=== PATIENT | male | born 1930 | race Caucasian/White ===

== ENCOUNTER 2016-10-19 14:16 | Emergency (ER) | payer MEDICARE, OTHER ==
--- NOTE | 2016-10-19 14:54 | PD ---
HPI Chief Complaint: chest pain Time Seen by Provider: 14:53 Travel History International Travel<30 days: No Contact w/Intl Traveler<30days: No Traveled to known affect area: No History of Present Illness HPI 86-year-old male with history of dementia presents to the emergency department from [facility] for evaluation. Patient is only [place] speaking. We have attempted to utilize our online interpretation services, however the patient is not understanding the process and cannot figure out where the woman is speaking from. We have contacted Radha a nurse corporate strategy intern who does Central African who has calmed down to help us assess the patient. She tells us that the patient states he is fine and he would like to go home. He does not recall any chest pain or tightness. He states he has not been sick. He is hungry. He is overall a very poor historian. However per [facility], the patient had his hand on his chest and they assumed that he had chest pain and would like a cardiac evaluation. I did get a hold of the patient's who informed me she the patient has only been a [facility] rehabilitation for a couple of days. They do not have anybody he speaks [place] there. She states that this has happened in the past and the patient has had complete negative cardiac workup. He sees a hot die picker and has seen him within the last year and was told that his heart was okay. She tells me that the patient is likely hungry. She tells me the patient spoke [place] all of these years however with his dementia advancing he has reverted back to [place]. She states she, herself, is unable to communicate completely with him. [facility] Past Medical History Medical History: Unable to Obtain Social History Tobacco Use: No Allergies-Medications (Allergen,Severity, Reaction): Coded Allergies: UNOBTAINABLE (Unverified , 10/19/16) pt thai speaking; hx of dementia; unable to effectively utilize interpretation services for communication Review of Systems ROS Limitations: Poor Historian Except as stated in HPI: all other systems reviewed are Neg Physical Exam Exam Limitations: Poor Historian Narrative GENERAL: A pleasant, elderly male patient, ambulatory, in no acute distress. SKIN: Focused skin assessment warm/dry. HEAD: Atraumatic. Normocephalic. EYES: Pupils equal and round. No scleral icterus. No injection or drainage. ENT: No nasal bleeding or discharge. Mucous membranes pink and moist. NECK: Trachea midline. No JVD. CARDIOVASCULAR: Regular rate and rhythm. 2/6 systolic murmur RESPIRATORY: No accessory muscle use. Clear to auscultation. Breath sounds equal bilaterally. GASTROINTESTINAL: Abdomen soft, non-tender, nondistended. Hepatic and splenic margins not palpable. MUSCULOSKELETAL: No obvious deformities. No clubbing. No cyanosis. No edema. NEUROLOGICAL: Awake and alert. No obvious cranial nerve deficits. Motor grossly within normal limits. Patient speaks primarily [place]. Data Data Last Documented VS Vital Signs Date Time Temp Pulse Resp B/P Pulse Ox O2 Delivery O2 Flow Rate FiO2 10/19/16 19:14 71 18 128/80 100 Room Air Orders Electrocardiogram (10/19/16 14:52) Basic Metabolic Panel (Bmp) (10/19/16 14:52) Ckmb (Isoenzyme) Profile (10/19/16 14:52) Complete Blood Count With Diff (10/19/16 14:52) Magnesium (Mg) (10/19/16 14:52) Prothrombin Time / Inr (Pt) (10/19/16 14:52) Act Partial Throm Time (Ptt) (10/19/16 14:52) Troponin I (10/19/16 14:52) Chest, Single Ap (10/19/16 14:52) Ecg Monitoring (10/19/16 14:52) Bilateral Bp Monitoring (10/19/16 14:52) Iv Access Insert/Monitor (10/19/16 14:52) Oximetry (10/19/16 14:52) Oxygen Administration (10/19/16 14:52) Aspirin Chew (Aspirin Chew) (10/19/16 15:00) Sodium Chloride 0.9% Flush (Ns Flush) (10/19/16 15:00) Sodium Chlorid 0.9% 500 Ml Inj (Ns 500 M (10/19/16 15:00) CKMB (10/19/16 15:45) CKMB% (10/19/16 15:45) Labs Laboratory Tests Test 10/19/16 15:45 White Blood Count 5.9 TH/MM3 Red Blood Count 3.71 MIL/MM3 Hemoglobin 10.4 GM/DL Hematocrit 32.5 % Mean Corpuscular Volume 87.7 FL Mean Corpuscular Hemoglobin 28.0 PG Mean Corpuscular Hemoglobin 32.0 % Concent Red Cell Distribution Width 16.6 % Platelet Count 246 TH/MM3 Mean Platelet Volume 11.2 FL Neutrophils (%) (Auto) 49.9 % Lymphocytes (%) (Auto) 37.2 % Monocytes (%) (Auto) 10.3 % Eosinophils (%) (Auto) 1.6 % Basophils (%) (Auto) 1.0 % Neutrophils # (Auto) 2.9 TH/MM3 Lymphocytes # (Auto) 2.2 TH/MM3 Monocytes # (Auto) 0.6 TH/MM3 Eosinophils # (Auto) 0.1 TH/MM3 Basophils # (Auto) 0.1 TH/MM3 CBC Comment DIFF FINAL Differential Comment Prothrombin Time 11.0 SEC Prothromb Time International 1.0 RATIO Ratio Activated Partial 26.1 SEC Thromboplast Time Sodium Level 139 MEQ/L Potassium Level 3.7 MEQ/L Chloride Level 104 MEQ/L Carbon Dioxide Level 27.5 MEQ/L Anion Gap 8 MEQ/L Blood Urea Nitrogen 25 MG/DL Creatinine 0.90 MG/DL Estimat Glomerular Filtration 80 ML/MIN Rate Random Glucose 92 MG/DL Calcium Level 8.7 MG/DL Magnesium Level 2.0 MG/DL Total Creatine Kinase 124 U/L Creatine Kinase MB 1.9 NG/ML Troponin I LESS THAN 0.02 NG/ML MDM Medical Decision Making Medical Screen Exam Complete: Yes Emergency Medical Condition: Yes Medical Record Reviewed: Yes Differential Diagnosis Normal examination versus dementia versus ACS versus angina versus electrolyte abnormality Narrative Course 86-year-old male presents to the emergency department for evaluation. Interpretation is done through Radha sahni nurse corporate strategy intern who reports the patient has no complaints. He appears well. His vital signs are stable. I discussed the patient and his after an essentially negative cardiac workup, who states this has happened with the patient in the past and he has followed up with hot die picker with negative cardiac workup. She is comfortable with him being discharged back to the facility. I discussed the patient's attending physician who also agrees that the patient appears well. There are no acute findings on exam or within the workup we have done here. Transportation is arranged for patient back to the facility. Diagnosis Primary Impression: Dementia Qualified Code: F03.90 - Dementia without behavioral disturbance, unspecified dementia type Additional Impression: Normal physical exam Referrals: [facility] Care Physician Patient Instructions: Dementia (ED), General Instructions Additional Instructions: Follow-up a primary care provider Continue follow-up with your hot die picker Return immediately with any acute worsening of symptoms Med/Other Pt SpecificInfo: No Change to Meds Disposition: 01 DISCHARGE HOME Condition: Stable Janice Price Oct 19, 2016 14:53
[2016-10-19] MEDS ORDERED: ASPIRIN 81 MG CHEW TAB PO ONE (15:00)
[2016-10-19] MEDS ORDERED: SODIUM CHLORIDE 0.9% FLUSH 10 ML FLUSH IVF PRN (15:00)
[2016-10-19] MEDS ORDERED: SODIUM CHLORID 0.9% 500 ML INJ 500 ML IV ONE (15:00)
[2016-10-19 15:59] VITALS: O2SAT 97
[2016-10-19 16:21] LABS: AUTOMATED NEUTROPHIL # 2.9 TH/MM3 (1.8-7.7); BASOPHIL # 0.1 TH/MM3 (0-0.2); EOSINOPHIL # 0.1 TH/MM3 (0-0.4); EOSINOPHIL % 1.6 % (0.0-4.0); HEMATOCRIT 32.5 % (39.0-51.0); HEMO FLAGS DIFF FINAL; LYMPH % 37.2 % (9.0-44.0); LYMPHOCYTE # 2.2 TH/MM3 (1.0-4.8); MEAN CELL VOLUME 87.7 FL (80.0-100.0); MONO % 10.3 % (0.0-8.0); NEUT % 49.9 % (16.0-70.0); PLATELET COUNT 246 TH/MM3 (150-450); RED BLOOD COUNT 3.71 MIL/MM3 (4.50-5.90); RED CELL DISTRIBUTION WIDTH 16.6 % (11.6-17.2); WHITE BLOOD COUNT 5.9 TH/MM3 (4.0-11.0)
[2016-10-19 16:32] LABS: APTT (PATIENT) 26.1 SEC (24.3-30.1)
[2016-10-19 16:34] LABS: ANION GAP 8 MEQ/L (5-15); BICARBONATE 27.5 MEQ/L (21.0-32.0); BLOOD UREA NITROGEN 25 MG/DL (7-18); CHLORIDE 104 MEQ/L (98-107); GLOMERULAR FILTRATION RATE 80 ML/MIN (>89); POTASSIUM 3.7 MEQ/L (3.5-5.1); SODIUM (NA) 139 MEQ/L (136-145)
[2016-10-19 16:39] LABS: CREATINE KINASE 124 U/L (39-308)
[2016-10-19 16:51] LABS: CKMB 1.9 NG/ML (0.5-3.6)
--- NOTE | 2016-10-19 17:20 | RADRPT ---
EXAM DATE/TIME: 10/19/2016 15:16 [facility] COMPARISON: No previous studies available for comparison. INDICATIONS : Chest Pain MEDICAL HISTORY : Unobtainable SURGICAL HISTORY : Unobtainable ENCOUNTER: Initial ACUITY: 1 day PAIN SCORE: Non-responsive. LOCATION: Bilateral chest FINDINGS: The heart size is normal. There is minimal increased density at the lateral left base at the left co stophrenic angle region. The right lung is grossly clear. There is some prominence of the right hil ar structure potentially representing a prominent vessel on end. This study is taken with a poor ins piratory effort. CONCLUSION: 1. Minimal increased density at the left lateral base likely representing some minimal atelectasis co nsolidation or minimal effusion. 2. Mild prominence to the right hilum likely related to a vessel on end. This could be further evalu ated with a PA and lateral chest x-ray at some point. Benjamin Mejia MD on October 19, 2016 at 16:18 Board Certified Radiologist. This report was verified electronically.
[2016-10-19 19:14] VITALS: BP 128/80; PULSE 71; RESP 18; O2SAT 100
--- NOTE | 2016-10-20 14:02 | EKG ---
Date Performed: 10/19/2016 Time Performed: 16:05:19 PTAGE: 86 years EKG: Sinus rhythm WITH OCCASIONAL SUPRAVENTRICULAR PREMATURE COMPLEXES INFERIOR MYOCARDIAL INFARCTION ABNORMAL ECG NO PREVIOUS TRACING Consider inferior myocardial infarction - age indeterminate DOCTOR: Mayur Guaman Interpretating Date/Time 10/20/2016 14:02:14
== END 2016-10-19 19:13 | disposition home or self-care (01) ==
LOC: NEPC 14:16
DX: F03.90 Unspecified dementia, unspecified severity, without behavioral disturbance, psychotic disturbance, mood disturbance, and anxiety (principal); R94.31 Abnormal electrocardiogram [ECG] [EKG]
CPT/HCPCS: 71010; 80048; 82550; 82552; 83735; 84484; 85025; 85610; 85730; 93005; 99285